=== PATIENT | male | born 1995 | race Two or more races ===

== ENCOUNTER 2023-01-09 03:02 | Emergency (ER) | payer OTHER ==
[~2023-01-09] VITALS: Ht 165.1 cm; Wt 70.3 kg
[2023-01-09] MEDS ORDERED: XOPENEX HFA15 GM IH (03:17)
[2023-01-09] MEDS ORDERED: UCERIS9 MG PO (03:17)
[2023-01-09] MEDS ORDERED: MUPIROCIN1 G1 TOP ×2 (05:08→05:09)
[2023-01-09] MEDS ORDERED: AMOX-CLAV 875-1 EAC1 PO (05:09)
== END 2023-01-09 05:21 | disposition home or self-care (01) ==
LOC: ER 03:02
DX: L73.9 Follicular disorder, unspecified (principal); Z88.6 Allergy status to analgesic agent; Z91.041 Radiographic dye allergy status